=== PATIENT | male | born 1985 | race African-American/Black ===

== ENCOUNTER 2022-01-26 11:36 | Emergency (ER) | payer MEDICAID, OTHER ==
[~2022-01-26] VITALS: Ht 180.3 cm; Wt 113.0 kg
[2022-01-26 12:40] VITALS: BP 129/71
[2022-01-26] MEDS ORDERED: CYCL-837 PO (17:01)
[2022-01-26] MEDS ORDERED: IBUP800T26 PO (17:01)
== END 2022-01-26 18:18 | disposition home or self-care (01) ==
LOC: ER 11:36
DX: S13.4XXA Sprain of ligaments of cervical spine, initial encounter (principal); M25.562 Pain in left knee; V43.92XA Unspecified car occupant injured in collision with other type car in traffic accident, initial encounter; Y93.89 Activity, other specified; Y92.89 Other specified places as the place of occurrence of the external cause; Y99.8 Other external cause status
CPT/HCPCS: 72040; 73030; 73130; 73562

== ENCOUNTER 2022-08-20 13:57 | Emergency (ER) | payer MEDICAID, OTHER ==
[~2022-08-20] VITALS: Ht 180.3 cm; Wt 111.0 kg
[~2022-08-20 13:57] MED LIST: CYCL-837 PO; IBUP-1455 PO
[2022-08-20 14:51] VITALS: BP 150/85
[2022-08-20] MEDS ORDERED: KETOROLAC TROMETH 60MG/2ML VIAL IM STA (14:59)
[2022-08-20] MEDS ORDERED: DICL1GEL59 EXT (15:05)
[2022-08-20] MEDS ORDERED: IBUP-1454 PO (15:05)
[2022-08-20] MEDS ORDERED: KETOROLAC TROMETH 60MG/2ML VIAL IM ONE (15:45)
== END 2022-08-20 15:56 | disposition home or self-care (01) ==
LOC: ER 13:57
DX: M23.92 Unspecified internal derangement of left knee (principal)
CPT/HCPCS: 73562; 96372; 99283; J1885

== ENCOUNTER 2023-05-20 17:27 | Emergency (ER) | payer MEDICAID, OTHER ==
[~2023-05-20] VITALS: Ht 180.3 cm; Wt 109.5 kg
[~2023-05-20 17:27] MED LIST changes: +DICL1GEL59 EXT; +HYDR-4902 PO; +IBUP-1454 PO; +LEVO500T91 PO; +MET500T PO
[2023-05-20 18:32] VITALS: BP 141/94; PULSE 54; RESP 18; TEMP 98.6; O2SAT 95
[2023-05-20] MEDS ORDERED: BACL10TA PO (20:13)
[2023-05-20] MEDS ORDERED: IBUP1TAB5 PO (20:13)
[2023-05-20] MEDS: HYDROcodone-ACET 5/325MG TAB PO ONE (20:20)
== END 2023-05-20 20:15 | disposition home or self-care (01) ==
LOC: ER 17:27
DX: S13.4XXA Sprain of ligaments of cervical spine, initial encounter (principal); S73.102A Unspecified sprain of left hip, initial encounter; S43.402A Unspecified sprain of left shoulder joint, initial encounter; S63.92XA Sprain of unspecified part of left wrist and hand, initial encounter; S00.83XA Contusion of other part of head, initial encounter; R10.9 Unspecified abdominal pain; Z79.1 Long term (current) use of non-steroidal anti-inflammatories (NSAID); Z79.2 Long term (current) use of antibiotics; Z79.899 Other long term (current) drug therapy; V49.9XXA Car occupant (driver) (passenger) injured in unspecified traffic accident, initial encounter; Y93.89 Activity, other specified; Y92.410 Unspecified street and highway as the place of occurrence of the external cause; Y99.8 Other external cause status
CPT/HCPCS: 70450; 72125; 73030; 73130; 74176

== ENCOUNTER 2024-05-17 14:45 | Emergency (ER) | payer MEDICAID, OTHER ==
[~2024-05-17] VITALS: Ht 180.3 cm; Wt 110.0 kg
[~2024-05-17 14:45] MED LIST changes: +BACL10TA PO; +IBUP1TAB5 PO
[2024-05-17 15:15] VITALS: BP 138/88; RESP 18; O2SAT 96
--- NOTE | 2024-05-17 16:02 | ED.PDOC ---
HPI (NEURO) HPI Comments 38y M who presents to the ED for chief complaint of dizziness. Pt states for the past 3 days, he has been having dizziness, generalized weakness and associated head pressure and shortness of breath. Pt states 1 month prior he was dx with influenza and COVID and states he was placed on multiple medications. Pt states he finished his course of all his medications and since been noticing increasing of his symptoms. Pt in the ED, otherwise has noted stable vitals with 02 sat of 96% and all other vitals in normal range. Pt otherwise denies any other symptoms at this time. Chief Complaint: Dizziness Time Seen by MD: 15:59 Primary Care Provider: JUSTEN Mckeon Notes: Medications, Allergies Information Source: Patient Mode of Arrival: Ambulatory Brought in by: self Severity: Moderate Dizziness/Weakness Severity: Does not affect activitie Headache Severity: Moderate Timing: Days Duration: Since onset Prehospital treatment: None Headache Location: Generalized Weakness Location: Generalized Onset: At rest Circumstances: Spontaneous Symptoms: Weakness History of: None Modifying factors: Nothing Associated Signs and Symptoms: Weakness Past Medical History PAST MEDICAL HISTORY: Denies Surgical History: Appendectomy, Denies all surgeries Family History Family History: Reviewed,noncontributory to illness, No family hx of Cancer, No family hx ofKidney kulwinder, No family hx of Liver kulwinder, No family hx of Lung kulwinder, No family hx of Stroke, Family hx of DM, Family hx of heart kulwinder Social History Smoker: Non-Smoker Alcohol: Denies ETOH Use Drugs: Denies Drug Use Lives In: Home Constitutional: denies: chills, diaphoresis, fatigue, fever, malaise, sweats, weakness, others EENTM: denies: blurred vision, double vision, ear bleeding, ear discharge, ear drainage, ear pain, ear ringing, eye pain, eye redness, hearing loss, mouth pain, mouth swelling, nasal discharge, nose bleeding, nose congestion, nose pain, photophobia, tearing, throat pain, throat swelling, voice changes, others Respiratory: reports: shortness of breath; denies: cough, hemoptysis, orthopnea, SOB at rest, SOB with excertion, stridor, wheezing, others Cardiovascular: denies: chest pain, dizzy spells, diaphoresis, Dyspnea on exertion, edema, irregular heart beat, left arm pain, lightheadedness, pal pitations, PND, syncope, others Gastrointestinal: denies: abdomen distended, abdominal pain, blood streaked bowels, constipated, diarrhea, dysphagia, difficulty swallowing, hematemesis, melena, nausea, poor appetite, poor fluid intake, rectal bleeding, rectal pain, vomiting, others Genitourinary: denies: burning, dysuria, flank pain, frequency, hematuria, incontinence, penile discharge, penile sore, pain, testicle pain, testicle swelling, urgency, others Neurological: reports: dizziness, weakness; denies: fainting, headache, left sided numbness, left sided weakness, numbness, paresthesia, pre-existing deficit, right sided numbness, right sided weakness, seizure, speech problems, tingling, tremors, others Musculoskeletal: denies: back pain, gout, joint pain, joint swelling, muscle pain, muscle stiffness, neck pain, others Integumetry: denies: bruises, change in color, change in hair/nails, dryness, laceration, lesions, lumps, rash, wounds, others Allergic/Immunocompromised: denies: Difficulty Healing, Frequent Infections, Hives, Itching, others Hematologic/Lymphatic: denies: anemia, blood clots, easy bleeding, easy bruising, swollen glands, others Endocrine: denies: excessive hunger, excessive sweating, excessive thirst, excessive urination, flushing, intolerance to cold, intolerance to heat, unexp lained weight gain, unexplained weight loss, others Psychiatric: denies: anxiety, bipolar disorder, depression, hopeless, panic disorder, schizophrenia, sleepless, suicidal, others All Other Systems: Reviewed and Negative Physical Exam General Appearance: No Apparent Distress HEENT: Normal ENT Inspection, Pharynx Normal, TMs Normal Neck: Full Range of Motion, Non-Tender, Normal, Normal Inspection Respiratory: Chest Non-Tender, Lungs Clear, No Accessory Muscle Use, No Respiratory Distress, Normal Breath Sounds Cardiovascular: No Edema, No JVD, No Murmur, No Gallop, Normal Peripheral Pulses, Regular Rate/Rhythm Breast Exam: Deferred Gastrointestinal: No Organomegaly, Non Tender, No Pulsatile Mass, Normal Bowel Sounds, Soft Genitalia: Deferred Pelvic: Deferred Rectal: Deferred Extremities: No calf tenderness, Normal capillary refill, Normal inspection, Normal range of motion, Non-tender, No pedal edema Musculoskeletal : Apperance: Normal Neurologic: Alert, salesforce trainer II-XII nml as Tested, No Motor Deficits, Normal Affect, Normal Mood, No Sensory Deficits Cerebellar Function: Normal Reflexes: Normal Skin: Dry, Normal Color, Warm Lymphatic: No Adenopathy EKG EKG : Pulse Rate (adult): 64 [place]: Normal Cardiac Rhythm: NSR Block: None ST: Nonsp Was a procedure done? Was a procedure done?: No Differential Diagnosis (SZ) General Weakness: Anemia, Dehydration, Electrolyte imbalance, Encephalopathy, H ypoglycemia, Hypotension, TIA, Vertigo: central, Vertigo: peripheral, Vestibular neuronitis Headache: Migraine X-Ray, Labs, Meds, VS Vital Signs Date Time Temp Pulse Resp B/P (MAP) Pulse Ox O2 Delivery O2 Flow Rate FiO2 05/17/24 15:15 98.3 83 18 138/88 (105) 96 05/17/24 15:08 92 Lab Test 05/17/24 17:17 05/17/24 16:06 Range/Units Troponin I High Sensitivity Pending 3 L </=54 ng/L White Blood Count 6.5 4.4-10.8 10^3/uL Red Blood Count 5.24 4.5-5.90 10^6/uL Hemoglobin 15.0 13.5-17.5 g/dL Hematocrit 45.3 41.0-53.0 % Mean Corpuscular Volume 86.4 80.0-100.0 fL Mean Corpuscular Hemoglobin 28.6 28.0-32.0 pg Mean Corpuscular Hemoglobin Concent 33.1 32.0-36.0 g/dL Red Cell Distribution Width 14.0 11.8-14.3 % Platelet Count 304 140-450 10^3/uL Mean Platelet Volume 7.5 6.9-10.8 fL Neutrophils (%) (Auto) 57.4 37.0-80.0 % Lymphocytes (%) (Auto) 31.6 10.0-50.0 % Monocytes (%) (Auto) 7.7 0.0-12.0 % Eosinophils (%) (Auto) 2.8 0.0-7.0 % Basophils (%) (Auto) 0.5 0.0-2.0 % Neutrophils # (Auto) 3.7 1.6-8.6 10 ^3/uL Lymphocytes # (Auto) 2.0 0.4-5.4 10 ^3/uL Monocytes # (Auto) 0.5 0-1.3 10 ^3/uL Eosinophils # (Auto) 0.2 0-0.8 10 ^3/uL Basophils # (Auto) 0 0-0.2 10 ^3/uL Nucleated Red Blood Cells 0.1 % D-Dimer, Quantitative 0.23 0.0-0.49 mg/L FEU Sodium Level 140 136-145 mmol/L Potassium Level 3.8 3.5-5.1 mmol/L Chloride Level 102 98-107 mmol/L Carbon Dioxide Level 29 20-31 mmol/L Anion Gap 9 5-15 Blood Urea Nitrogen 11 9-23 mg/dL Creatinine 1.40 H 0.700-1.30 mg/dL Glomerular Filtration Rate Calc 66 >90 mL/min BUN/Creatinine Ratio 7.9 L 10.0-20.0 Serum Glucose 123 H 74-106 mg/dL Calcium Level 9.5 8.7-10.4 mg/dL The patient's CBC and chemistry panel is within normal limits At this time, the patient will be discharged The patient will return to the emergency department's condition worsens The vital signs are all stable The patient will return to the emergency department's condition worsens. Time of 1ST Reevaluation: 16:30 Reevaluation 1ST: Unchanged Patient Education/Counseling: Diagnosis, Treatment, Prognosis, Need For Follow Up Family Education/Counseling: No Family Present Additional Information -Reviewed patient's previous visit(s): - The following tests were ordered, and results were reviewed by me: cbc, d- dimer, bmp, trop x3 - Additional information was gathered from interviewing the following independent Historian: patient - I reviewed and agreed with the following test results read by other provider: none - I discussed treatments and results with medical personnel and: patient Comprehensive systems review obtained and negative except for what is stated in the HPI. Departure 1 Departure Time of Disposition: 18:16 Impression: Primary Impression: Dizziness Disposition: 01 HOME / SELF CARE / HOMELESS Condition: Fair Discharged With: Self Critical Care Note Critical Care Time?: No Stability Stability form required: No Heart Score Heart Score: Heart Score Response (Comments) Value History Slightly Suspicious 0 EKG Normal 0 Age <45 0 Risk Factors No known risk factors 0 Troponin Normal limit 0 Total 0 I personally scribed for LION CLATYON MD ([email or web address]) on 05/17/24 at 16:02. Electronically submitted by Jose David Stewart ([email or web address]). LION CLAYTON MD May 17, 2024 16:02
[2024-05-17 16:28] LABS: Basophils # (auto) 0 10 ^3/uL (0-0.2); Basophils % (auto) 0.5 % (0.0-2.0); Eosinophils # (auto) 0.2 10 ^3/uL (0-0.8); Eosinophils % (auto) 2.8 % (0.0-7.0); Hematocrit 45.3 % (41.0-53.0); Lymphocytes % (auto) 31.6 % (10.0-50.0); Mean Corpuscular Hemoglobin 28.6 pg (28.0-32.0); Mean Corpuscular Hgb Conc. 33.1 g/dL (32.0-36.0); Mean Corpuscular Volume 86.4 fL (80.0-100.0); Monocytes # (auto) 0.5 10 ^3/uL (0-1.3); Monocytes % (auto) 7.7 % (0.0-12.0); Neutrophils # (auto) 3.7 10 ^3/uL (1.6-8.6); Neutrophils % (auto) 57.4 % (37.0-80.0); Nucleated Red Blood Cells % 0.1 %; Platelet Count (auto) 304 10^3/uL (140-450); Red Blood Cells 5.24 10^6/uL (4.5-5.90); White Blood Cell 6.5 10^3/uL (4.4-10.8)
[2024-05-17 16:43] LABS: Chloride 102 mmol/L (98-107); Potassium 3.8 mmol/L (3.5-5.1); Sodium 140 mmol/L (136-145)
[2024-05-17 16:44] LABS: Anion Gap 9 (5-15); Calcium 9.5 mg/dL (8.7-10.4); Carbon Dioxide 29 mmol/L (20-31)
[2024-05-17 16:49] LABS: BUN/Creatinine Ratio 7.9 (10.0-20.0); Blood Urea Nitrogen 11 mg/dL (9-23)
[2024-05-17 16:50] LABS: Glucose 123 mg/dL (74-106)
[2024-05-17 18:17] VITALS: PULSE 64
--- NOTE | 2024-05-18 12:24 | ECG ---
[facility] Test Date: 2024-05-17 Test Time: 15:08:16 Pat Name: DARIUS PATEL Department: ER Room: Gender: M [employer] Clerk: KARLA : 1985 Requested By: LION CLAYTON Order Number: [id number] Reading MD: Bello Hendrickson Measurements Intervals [place] Rate: 92 P: 71 NM: 152 QRS: 76 QRSD: 91 T: -22 QT: 325 QTc: 402 Interpretive Statements Sinus rhythm Borderline T abnormalities, diffuse leads Baseline wander in lead(s) V5 Electronically Signed On 05-20-2024 17:38:54 PST by Bello Hendrickson Please click the below link to view image of tracing.
== END 2024-05-17 18:16 | disposition home or self-care (01) ==
LOC: ER 14:45
DX: R42 Dizziness and giddiness (principal); Z90.49 Acquired absence of other specified parts of digestive tract
CPT/HCPCS: 36415; 80048; 84484; 85025; 85379; 93005